=== PATIENT | female | born 1985 | race Caucasian/White ===

== ENCOUNTER 2019-06-01 02:43 | Emergency (ER) | payer MEDICAID ==
[2019-06-01] MEDS ORDERED: diphenhydrAMINE 50 MG/ML SDV IVPUSH ONE (03:00)
[2019-06-01] MEDS ORDERED: Ketorolac 30 MG/ML SDV IVPUSH ONE (03:00)
[2019-06-01] MEDS ORDERED: Ondansetron 4 MG/2 ML SDV IVPUSH ONE (03:00)
[2019-06-01] MEDS ORDERED: Sodium Chloride 0.9% 1,000 ML IV ONE (03:11)
--- NOTE | 2019-06-01 04:22 | CT ---
INDICATION: Increasing migraine TECHNIQUE: CT head without contrast. COMPARISON: None. FINDINGS: CSF spaces: Within normal limits for age. Brain parenchyma: The martell-white differentiation is normal. No sign of mass, hemorrhage, or midline shift. Skull base and calvarium: The visualized paranasal sinuses and mastoid air cells demonstrate no acute or significant findings. The visualized orbits are grossly unremarkable. No skull fractures. IMPRESSION: Unremarkable noncontrast head CT. Please note that all CT scans at this facility use dose modulation, iterative reconstruction, and/or weight-based dosing when appropriate to reduce radiation dose to as low as reasonably achievable. Dictated by Carrillo Meyer MD @ Jun 01 2019 4:18AM Signed by Dr. Carrillo Meyer @ Jun 01 2019 4:20AM
--- NOTE | 2019-06-01 04:32 | EDM.PDOC ---
ED HPI GENERAL MEDICAL PROBLEM - General Chief Complaint: Headache Stated Complaint: PERSISTENT MIGRAINE, DEHYDRATION Time Seen by Provider: 06/01/19 04:29 - History of Present Illness INITIAL COMMENTS - FREE TEXT/NARRATIVE: HISTORY AND PHYSICAL: History of present illness: Patient 33-year-old female with history of migraine headache sensory concern of migraine headache no trauma no other concern is his typical migraine per description with associated photophobia and nausea. Review of systems: As per history of present illness and below otherwise all systems reviewed and negative. Past medical history: As per history of present illness and as reviewed below otherwise noncontributory. Surgical history: As per history of present illness and as reviewed below otherwise noncontributory. Social history: No reported history of drug or alcohol abuse. Family history: As per history of present illness and as reviewed below otherwise noncontributory. Physical exam: HEENT: Atraumatic, normocephalic, pupils reactive, negative for conjunctival pallor or scleral icterus, mucous membranes moist, throat clear, neck supple, nontender, trachea midline. Lungs: Clear to auscultation, breath sounds equal bilaterally, chest nontender. Heart: S1S2, regular, negative for clicks, rubs, or JVD. Abdomen: Soft, nondistended, nontender. Negative for masses or hepatosplenomegaly. Negative for costovertebral tenderness. Pelvis: Stable nontender. Genitourinary: Deferred. Rectal: Deferred. Extremities: Atraumatic, negative for cords or calf pain. Neurovascular unremarkable. Neuro: Awake, alert, oriented. Cranial nerves II through XII unremarkable. Cerebellum unremarkable. Motor and sensory unremarkable throughout. Exam nonfocal. Diagnostics: CT brain Therapeutics: Saline 1 L bolus for now 30 mg IV Benadryl 25 mg IV Zofran 4 mg IV Impression: #1 migraine Definitive disposition and diagnosis as appropriate pending reevaluation and review of above. headache Pain Score (Numeric/FACES): 8 - Related Data Allergies Allergy/AdvReac Type Severity Reaction Status Date / Time cephalexin [From Keflex] Allergy Anxiety Verified 06/01/19 03:08 dexamethasone [From Decadron] Allergy Anxiety Verified 06/01/19 03:08 metoclopramide [From Reglan] Allergy Other Verified 06/01/19 03:08 Penicillins Allergy Anaphylactic Verified 06/01/19 03:08 Shock prochlorperazine Allergy Hives Verified 06/01/19 03:08 [From Compazine] Home Meds: Home Meds . [No Known Home Meds] 06/01/19 [History] Fish Oil/[place]tt-3 Fatty Acids [Fish Oil 1,000 MG] 1 each PO 06/01/19 [History] Methylfolate 100 mcg PO DAILY 06/01/19 [History] Ondansetron [Zofran ODT] 4 mg PO ASDIRECTED PRN 06/01/19 [History] SUMAtriptan Succinate [Imitrex] 0 mg SQ ASDIRECTED 06/01/19 [History] Spironolactone [Aldactone] 100 mg PO DAILY 06/01/19 [History] Topiramate 100 mg PO BEDTIME 06/01/19 [History] buPROPion HCl [Wellbutrin Xl] 150 mg PO DAILY 06/01/19 [History] clonazePAM [Klonopin] 1 mg PO BID 06/01/19 [History] Past Medical History HEENT History: Reports: None Cardiovascular History: Reports: None Respiratory History: Reports: None Gastrointestinal History: Reports: None 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: Reports: Endometriosis 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: multiple surgeries for endometriosis per pt Neurological History: Reports: None Psychiatric History: Reports: None Endocrine/Metabolic History: Reports: None Dermatologic History: Reports: None - Past Surgical History Female Surgical History: Reports: Hysterectomy Other Musculoskeletal Surgeries/Procedures:: right knee surgery Social & Family History - Family History Family Medical History: Noncontributory - Tobacco Use Smoking Status *Q: Current Every Day Smoker Years of Tobacco use: 15 Packs/Tins Daily: 0 Second Hand Smoke Exposure: No - Recreational Drug Use Recreational Drug Use: No ED ROS GENERAL - Review of Systems Review Of Systems: ROS reveals no pertinent complaints other than HPI. ED EXAM, GENERAL - Physical Exam Exam: See Below (See dictation) Course - Vital Signs Last Recorded V/S: Last Vital Signs Temp 36.6 C 06/01/19 02:52 Pulse 98 06/01/19 02:52 Resp 16 06/01/19 02:52 BP 107/57 L 06/01/19 02:52 Pulse Ox 96 06/01/19 02:52 - Orders/Labs/Meds Meds: Medications Discontinued Medications Generic Name Dose Route Start Last Admin Trade Name Freq PRN Reason Stop Dose Admin Diphenhydramine HCl 25 mg 06/01/19 03:00 06/01/19 03:08 Benadryl IVPUSH 06/01/19 03:01 25 mg ONETIME ONE Administration Sodium Chloride 1,000 mls @ 999 mls/hr 06/01/19 03:11 06/01/19 03:12 Normal Saline IV 06/01/19 04:11 999 mls/hr .Bolus ONE Administration Ketorolac Tromethamine 30 mg 06/01/19 03:00 06/01/19 03:08 Toradol IVPUSH 06/01/19 03:01 30 mg ONETIME ONE Administration Ondansetron HCl 4 mg 06/01/19 03:00 06/01/19 03:08 Zofran IVPUSH 06/01/19 03:01 4 mg ONETIME ONE Administration Departure - Departure Time of Disposition: 04:31 Disposition: Home, Self-Care 01 Condition: Good Clinical Impression: Migraine - Discharge Information Referrals: PCP,None [Primary Care Provider] - Additional Instructions: The following information is given to patients seen in the emergency department who are being discharged to home. This information is to outline your options for follow-up care. We provide all patients seen in our emergency department with a follow-up referral. The need for follow-up, as well as the timing and circumstances, are variable depending upon the specifics of your emergency department visit. If you don't have a primary care physician on staff, we will provide you with a referral. We always advise you to contact your personal physician following an emergency department visit to inform them of the circumstance of the visit and for follow-up with them and/or the need for any referrals to a consulting specialist. The emergency department will also refer you to a specialist when appropriate. This referral assures that you have the opportunity for followup care with a specialist. All of these measure are taken in an effort to provide you with optimal care, which includes your followup. Under all circumstances we always encourage you to contact your private physician who remains a resource for coordinating your care. When calling for followup care, please make the office aware that this follow-up is from your recent emergency room visit. If for any reason you are refused follow-up, please contact the [facility] emergency department at and asked to speak to the emergency department charge nurse. LAYLA [facility] [address] [place] [id number] Follow-up primary care above return as needed as discussed
== END 2019-06-01 05:06 | disposition home or self-care (01) ==
LOC: MW.ED 02:43
DX: G43.909 Migraine, unspecified, not intractable, without status migrainosus (principal); F17.210 Nicotine dependence, cigarettes, uncomplicated; Z88.0 Allergy status to penicillin; Z88.1 Allergy status to other antibiotic agents; Z88.8 Allergy status to other drugs, medicaments and biological substances; Z79.899 Other long term (current) drug therapy
CPT/HCPCS: 70450; 96361; 96374; 96375; 99283; J1200; J1885; J2405; J7040

== ENCOUNTER 2019-12-22 03:53 | Emergency (ER) | payer MEDICAID ==
[2019-12-22] MEDS ORDERED: Sodium Chloride 0.9% 1,000 ML IV ONE ×2 (04:04→06:17)
[2019-12-22] MEDS ORDERED: Ondansetron 4 MG/2 ML SDV IVPUSH ONE (04:04)
[2019-12-22] MEDS ORDERED: Ketorolac 30 MG/ML SDV IVPUSH ONE (04:16)
[2019-12-22] MEDS ORDERED: Ketorolac 30 MG/ML SDV ONE (04:16)
--- NOTE | 2019-12-22 04:27 | EDM.PDOC ---
ED HPI GENERAL MEDICAL PROBLEM - General Chief Complaint: Headache Stated Complaint: MIGRAINE Time Seen by Provider: 12/22/19 04:00 Source of Information: Reports: Patient History Limitations: Reports: No Limitations - History of Present Illness INITIAL COMMENTS - FREE TEXT/NARRATIVE: HISTORY OF PRESENT ILLNESS: Patient is a 34 year old female who presents with headache. States she has a history of migraine which was gradual in onset since this morning but progressively worsening. States she has been taking 100mg of Benadryl at a time approximately q 4 hours for a total of 500-525 mg of Benadryl in the last 19 hours. Her last dose was Benadryl 100 mg 1 hour ago. Pt began feeling dizzy and had nausea and multiple episodes of nonbloody nonbilious emesis. States her neighbor said she was stuttering but denies any changes in her speech presently. No trauma/falls. No fever. No neck stiffness. No rash. Has had a similar headache when she fell off a ladder in the past. Has tried her home migraine medication without relief. Denies SI, states she only took the Benadryl to try and abort the migraine. REVIEW OF SYSTEMS: Other than the symptoms associated with the present events, the following is reported with regard to recent health: General: (-) fever. HENT: (-) congestion. Respiratory: (-) cough. Cardiovascular: (-) chest pain. GI: (-) abdominal pain. : (-) urinary complaints. Musculoskeletal: (-) other aches or pains. Endocrine: (-) generalized weakness. Neurological: (-) localized weakness. Skin: (-) rash PAST MEDICAL HISTORY: reviewed as per nursing notes SOCIAL HISTORY: reviewed as per nursing notes, MEDICATIONS: Per nurse's note ALLERGIES: Per nurse's note, reviewed by me PHYSICAL EXAMINATION: GENERALIZED APPEARANCE: well developed, well nourished in moderate distress VITAL SIGNS: Per nurse's note, reviewed by me SKIN: Warm, dry; (-) cyanosis; (-) rash. HEAD: (-) scalp swelling, (-) tenderness. EYES: (-) conjunctival pallor, (-) scleral icterus. mydriasis bilaterally. EOMI ENMT: (-) stridor; mucous membranes moist. NECK: (-) tenderness, (-) stiffness, CHEST AND RESPIRATORY: (-) rales, (-) rhonchi, (-) wheezes; breath sounds equal bilaterally. HEART AND CARDIOVASCULAR: tachycardic, regular rhythm (-) murmur, (-) gallop. ABDOMEN AND GI: Soft; (-) tenderness, (-) guarding, (-) rebound, (-) palpable masses, EXTREMITIES: (-) deformity, (-) edema. NEURO AND PSYCH: Alert. Cranial nerves grossly intact; strength symmetric. gait steady. cerebellar nml . sensation intact. visual garcia intact. normal speech. no facial droop. 5/5+ strength UE and LE bilaterally. NIHSS = 0 DIAGNOSTICS: EKG: st at 106 bpm. nml axis. qtc 476 ms. qrs [address] head: as read by radiologist, reviewed by myself Labs reviewed EMERGENCY DEPARTMENT COURSE AND TREATMENT: Patient's condition improved during Emergency Department evaluation. Poison control contacted, see RN notes. Pt given Zofran for nausea and Toradol for pain control. Still with pain, as she had anticholinergic o/d, given Ativan. Hypokalemia noted and replaced. Initially stated she took Imitrex yesterday. On reevaluation, states she has been out and unable to get it refilled and was not able to take it yesterday. Given Imitrex 6 mg SQ. The patient presents to the emergency department with headache. Based on history, physical exam, and diagnostic evaluation, I doubt the symptoms are due to significant intracranial pathology such as traumatic injury, bleeding, or infection. The pt has a normal neurologic exam, and is without meningismus or fever. After therapy the symptoms improved and the patient ready for discharge. Discharge precautions were given and the patient understands to follow-up with the primary care physician for a repeat exam in 1- 2 days. The patient was instructed to return to the Emergency Department if headache worsens, or new symptoms develop. PLAN AND FOLLOW-UP: Patient received written and verbal instructions regarding this condition. Return to ED immediately with any new or worsening symptoms. Follow up to be arranged by patient with pcp in 1-2 days for further evaluation. Given discharge precautions. Patient expressed verbal understanding. headache Pain Score (Numeric/FACES): 10 - Related Data Allergies Allergy/AdvReac Type Severity Reaction Status Date / Time cephalexin [From Keflex] Allergy Anxiety Verified 12/22/19 04:14 dexamethasone [From Decadron] Allergy Anxiety Verified 12/22/19 04:14 metoclopramide [From Reglan] Allergy Other Verified 12/22/19 04:14 Penicillins Allergy Anaphylactic Verified 12/22/19 04:14 Shock prochlorperazine Allergy Hives Verified 12/22/19 04:14 [From Compazine] Home Meds: Home Meds Fish Oil/[place]-3 Fatty Acids [Fish Oil 1,000 MG] 1 each PO DAILY 06/01/19 [ History] Methylfolate 100 mcg PO DAILY 06/01/19 [History] Ondansetron [Zofran ODT] 4 mg PO ASDIRECTED PRN 06/01/19 [History] SUMAtriptan Succinate [Imitrex] 0 mg SQ ASDIRECTED 06/01/19 [History] Spironolactone [Aldactone] 100 mg PO DAILY 06/01/19 [History] Topiramate 100 mg PO BEDTIME 06/01/19 [History] clonazePAM [Klonopin] 1 mg PO BID 06/01/19 [History] Dicyclomine HCl [Bentyl] 10 mg PO QID PRN #10 capsule 09/03/19 [Rx] Ondansetron [Zofran ODT] 4 mg PO Q6H PRN #10 tab.dis 09/03/19 [Rx] Venlafaxine [Effexor] 125 mg PO DAILY 09/03/19 [History] SUMAtriptan [Imitrex] 6 mg SQ DAILY PRN #1 sdv 12/22/19 [Rx] Past Medical History HEENT History: Reports: None Cardiovascular History: Reports: None Respiratory History: Reports: None Gastrointestinal History: Reports: None 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: Reports: Endometriosis 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: multiple surgeries for endometriosis per pt Neurological History: Reports: None Psychiatric History: Reports: None Endocrine/Metabolic History: Reports: None Dermatologic History: Reports: None - Infectious Disease History Infectious Disease History: Reports: Chicken Pox - Past Surgical History Female Surgical History: Reports: Hysterectomy Other Musculoskeletal Surgeries/Procedures:: right knee surgery Social & Family History - Family History Family Medical History: Noncontributory - Caffeine Use Caffeine Use: Reports: Coffee, Soda ED ROS GENERAL - Review of Systems Review Of Systems: See Below (see dictation) ED EXAM, GENERAL - Physical Exam Exam: See Below (see dictation) Course - Vital Signs Last Recorded V/S: Last Vital Signs Temp 96 F L 12/22/19 04:00 Pulse 89 12/22/19 06:33 Resp 20 12/22/19 06:00 BP 102/74 12/22/19 06:33 Pulse Ox 99 12/22/19 06:00 - Orders/Labs/Meds Orders: Active Orders 24 hr Category Date Time Status EKG Documentation Completion [RC] STAT Care 12/22/19 04:04 Active Sodium Chloride 0.9% [Normal Saline] 1,000 ml Med 12/22/19 06:17 Active IV .Bolus Medication Orders Sodium Chloride (Normal Saline) 1,000 mls @ 1,000 mls/hr IV .Bolus ONE Stop: 12/22/19 07:16 Last Admin: 12/22/19 06:27 Dose: 1,000 mls/hr Labs: Laboratory Tests 12/22/19 12/22/19 12/22/19 Range/Units 04:03 04:03 04:03 WBC 11.54 H (4.0-11.0) K/uL RBC 5.32 (4.30-5.90) M/uL Hgb 15.7 (12.0-16.0) g/dL Hct 46.7 H (36.0-46.0) % MCV 87.8 (80.0-98.0) fL MCH 29.5 (27.0-32.0) pg MCHC 33.6 (31.0-37.0) g/dL RDW Std Deviation 43.2 (28.0-62.0) fl RDW Coeff of Giancarlo 14 (11.0-15.0) % Plt Count 346 (150-400) K/uL MPV 10.10 (7.40-12.00) fL Neut % (Auto) 46.7 L (48.0-80.0) % Lymph % (Auto) 45.2 H (16.0-40.0) % [place] % (Auto) 6.8 (0.0-15.0) % Eos % (Auto) 1.0 (0.0-7.0) % Baso % (Auto) 0.3 (0.0-1.5) % Neut # (Auto) 5.4 (1.4-5.7) K/uL Lymph # (Auto) 5.2 H (0.6-2.4) K/uL [place] # (Auto) 0.8 (0.0-0.8) K/uL Eos # (Auto) 0.1 (0.0-0.7) K/uL Baso # (Auto) 0.0 (0.0-0.1) K/uL Nucleated RBC % 0.0 /100WBC Nucleated RBCs # 0 K/uL Sodium 140 (136-145) mmol/L Potassium 2.8 L (3.5-5.1) mmol/L Chloride 102 (98-107) mmol/L Carbon Dioxide 26.0 (21.0-32.0) mmol/L BUN 5 L (7.0-18.0) mg/dL Creatinine 0.9 (0.6-1.0) mg/dL Est Cr Clr Drug Dosing TNP Estimated GFR (MDRD) > 60.0 ml/min Glucose 121 H (74-106) mg/dL Calcium 9.0 (8.5-10.1) mg/dL Creatine Kinase 80 (26-308) U/L Salicylates 4.8 (0-20) mg/dL Urine Opiates Screen (NEGATIVE) Ur Oxycodone Screen (NEGATIVE) Urine Methadone Screen (NEGATIVE) Acetaminophen <2.0 ug/mL Ur Barbiturates Screen (NEGATIVE) Ur Phencyclidine Scrn (NEGATIVE) Ur Amphetamine Screen (NEGATIVE) U Methamphetamines Scrn (NEGATIVE) U Benzodiazepines Scrn (NEGATIVE) U Cocaine Metab Screen (NEGATIVE) U Marijuana (THC) Screen (NEGATIVE) 12/22/19 Range/Units 06:35 WBC (4.0-11.0) K/uL RBC (4.30-5.90) M/uL Hgb (12.0-16.0) g/dL Hct (36.0-46.0) % MCV (80.0-98.0) fL MCH (27.0-32.0) pg MCHC (31.0-37.0) g/dL RDW Std Deviation (28.0-62.0) fl RDW Coeff of Giancarlo (11.0-15.0) % Plt Count (150-400) K/uL MPV (7.40-12.00) fL Neut % (Auto) (48.0-80.0) % Lymph % (Auto) (16.0-40.0) % [place] % (Auto) (0.0-15.0) % Eos % (Auto) (0.0-7.0) % Baso % (Auto) (0.0-1.5) % Neut # (Auto) (1.4-5.7) K/uL Lymph # (Auto) (0.6-2.4) K/uL [place] # (Auto) (0.0-0.8) K/uL Eos # (Auto) (0.0-0.7) K/uL Baso # (Auto) (0.0-0.1) K/uL Nucleated RBC % /100WBC Nucleated RBCs # K/uL Sodium (136-145) mmol/L Potassium (3.5-5.1) mmol/L Chloride (98-107) mmol/L Carbon Dioxide (21.0-32.0) mmol/L BUN (7.0-18.0) mg/dL Creatinine (0.6-1.0) mg/dL Est Cr Clr Drug Dosing Estimated GFR (MDRD) ml/min Glucose (74-106) mg/dL Calcium (8.5-10.1) mg/dL Creatine Kinase (26-308) U/L Salicylates (0-20) mg/dL Urine Opiates Screen NEGATIVE (NEGATIVE) Ur Oxycodone Screen NEGATIVE (NEGATIVE) Urine Methadone Screen NEGATIVE (NEGATIVE) Acetaminophen ug/mL Ur Barbiturates Screen NEGATIVE (NEGATIVE) Ur Phencyclidine Scrn NEGATIVE (NEGATIVE) Ur Amphetamine Screen NEGATIVE (NEGATIVE) U Methamphetamines Scrn NEGATIVE (NEGATIVE) U Benzodiazepines Scrn POSITIVE (NEGATIVE) U Cocaine Metab Screen NEGATIVE (NEGATIVE) U Marijuana (THC) Screen NEGATIVE (NEGATIVE) Meds: Medications Generic Name Dose Route Start Last Admin Trade Name Freq PRN Reason Stop Dose Admin Sodium Chloride 1,000 mls @ 1,000 mls/hr 12/22/19 06:17 12/22/19 06:27 Normal Saline IV 12/22/19 07:16 1,000 mls/hr .Bolus ONE Administration Discontinued Medications Generic Name Dose Route Start Last Admin Trade Name Freq PRN Reason Stop Dose Admin Sodium Chloride 1,000 mls @ 1,000 mls/hr 12/22/19 04:04 12/22/19 04:10 Normal Saline IV 12/22/19 05:03 1,000 mls/hr .Bolus ONE Administration Ketorolac Tromethamine 30 mg 12/22/19 04:16 12/22/19 04:19 Toradol IVPUSH 12/22/19 04:17 30 mg ONETIME ONE Administration Ketorolac Tromethamine Confirm 12/22/19 04:16 12/22/19 04:19 Toradol Administered 12/22/19 04:17 Not Given Dose 30 mg .ROUTE .STK-MED ONE Lorazepam 1 mg 12/22/19 04:56 12/22/19 04:59 Ativan IVPUSH 12/22/19 04:57 1 mg ONETIME ONE Administration Lorazepam 1 mg 12/22/19 06:16 12/22/19 06:27 Ativan IVPUSH 12/22/19 06:17 1 mg ONETIME ONE Administration Ondansetron HCl 4 mg 12/22/19 04:04 12/22/19 04:19 Zofran IVPUSH 12/22/19 04:05 4 mg ONETIME ONE Administration Potassium Chloride 40 meq 12/22/19 04:41 12/22/19 05:01 Klor-Con M20 PO 12/22/19 04:42 40 meq ONETIME ONE Administration Sumatriptan Succinate 6 mg 12/22/19 06:48 12/22/19 06:59 Imitrex SUBCUT 12/22/19 06:49 6 mg ONETIME ONE Administration Departure - Departure Time of Disposition: 07:14 Disposition: Home, Self-Care 01 Condition: Good Clinical Impression: Headache - Discharge Information *PRESCRIPTION DRUG MONITORING PROGRAM REVIEWED*: Not Applicable *COPY OF PRESCRIPTION DRUG MONITORING REPORT IN PATIENT DINA: Not Applicable Prescriptions: SUMAtriptan [Imitrex] 6 mg SQ DAILY PRN #1 sdv PRN Reason: migraine Instructions: Recurrent Migraine Headache, [id number] Referrals: Ananda Sharma [Primary Care Provider] - 1 Day Forms: ED Department Discharge Additional Instructions: The following information is given to patients seen in the emergency department who are being discharged to home. This information is to outline your options for follow-up care. We provide all patients seen in our emergency department with a follow-up referral. The need for follow-up, as well as the timing and circumstances, are variable depending upon the specifics of your emergency department visit. If you don't have a primary care physician on staff, we will provide you with a referral. We always advise you to contact your personal physician following an emergency department visit to inform them of the circumstance of the visit and for follow-up with them and/or the need for any referrals to a consulting specialist. The emergency department will also refer you to a specialist when appropriate. This referral assures that you have the opportunity for follow-up care with a specialist. All of these measure are taken in an effort to provide you with optimal care, which includes your follow-up. Under all circumstances we always encourage you to contact your private physician who remains a resource for coordinating your care. When calling for follow-up care, please make the office aware that this follow-up is from your recent emergency room visit. If for any reason you are refused follow-up, please contact the [facility] Emergency Department at and asked to speak to the emergency department charge nurse. Sepsis Event Note - Evaluation Sepsis Screening Result: No Definite Risk - Focused Exam Vital Signs: Vital Signs Temp Pulse Resp BP Pulse Ox 12/22/19 06:33 89 102/74 12/22/19 06:00 98 20 109/81 99 12/22/19 04:00 96 F L 130 H 18 131/102 H 96 Date Exam was Performed: 12/22/19 Time Exam was Performed: 07:12 - My Orders Last 24 Hours: My Active Orders 12/22/19 04:04 EKG Documentation Completion [RC] STAT 12/22/19 06:17 Sodium Chloride 0.9% [Normal Saline] 1,000 ml IV .Bolus - Assessment/Plan Last 24 Hours: My Active Orders 12/22/19 04:04 EKG Documentation Completion [RC] STAT 12/22/19 06:17 Sodium Chloride 0.9% [Normal Saline] 1,000 ml IV .Bolus
[2019-12-22 04:32] LABS: ACETAMINOPHEN <2.0 ug/mL
[2019-12-22 04:33] LABS: BLOOD UREA NITROGEN,BUN 5 mg/dL (7.0-18.0); CHLORIDE,CL 102 mmol/L (98-107); GLUCOSE RANDOM 121 mg/dL (74-106); POTASSIUM,K 2.8 mmol/L (3.5-5.1); SODIUM,NA 140 mmol/L (136-145)
[2019-12-22] MEDS ORDERED: Potassium Chloride 20 MEQ Tab.ER PO ONE (04:41)
[2019-12-22] MEDS ORDERED: LORazepam 2 MG/ML SDV IVPUSH ONE ×2 (04:56→06:16)
--- NOTE | 2019-12-22 05:07 | CT ---
INDICATION: Migraine headache TECHNIQUE: CT head without contrast. COMPARISON: June 01, 2020 FINDINGS: CSF spaces: Within normal limits for age. Brain parenchyma: The martell-white differentiation is normal. No sign of mass, hemorrhage, or midline shift. Skull base and calvarium: The visualized paranasal sinuses and mastoid air cells demonstrate no acute or significant findings. The visualized orbits are grossly unremarkable. No skull fractures. IMPRESSION: Unremarkable noncontrast head CT. Please note that all CT scans at this facility use dose modulation, iterative reconstruction, and/or weight-based dosing when appropriate to reduce radiation dose to as low as reasonably achievable. Dictated by Elizabeth Lopez MD @ Dec 22 2019 5:05AM Signed by Dr. Elizabeth Lopez @ Dec 22 2019 5:05AM
[2019-12-22] MEDS ORDERED: SUMAtriptan 6 MG/0.5 ML SDV SUBCUT ONE (06:48)
== END 2019-12-22 07:40 | disposition home or self-care (01) ==
LOC: MW.ED 03:53
DX: R51 Headache (principal); Z88.1 Allergy status to other antibiotic agents; Z88.0 Allergy status to penicillin; Z88.8 Allergy status to other drugs, medicaments and biological substances; Z79.899 Other long term (current) drug therapy
CPT/HCPCS: 36415; 70450; 80048; 80305; 80307; 82550; 85025; 93005; 96361; 96372; 96374; 96375; 96376; 99284; A9270; J1885; J2060; J2405; J3030; J7030; 99283

== ENCOUNTER 2020-03-30 05:24 | Emergency (ER) | payer MEDICAID ==
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
[2020-03-30] MEDS ORDERED: Ondansetron 4 MG Tab.DIS PO ONE (06:16)
[2020-03-30] MEDS ORDERED: Acetaminophen 500 MG Tab PO ONE (06:16)
--- NOTE | 2020-03-30 06:23 | CT ---
INDICATION: Trauma COMPARISON: None TECHNIQUE: CT examination of the head was performed as axial sections without intravenous contrast. Images were obtained from the vertex of the skull through the skull base. Please note that all CT scans at this facility use dose modulation, iterative reconstruction, and/or weight-based dosing when appropriate to reduce radiation dose to as low as reasonably achievable. FINDINGS: The brain shows no sign of mass lesion, mass effect, hemorrhage, or edema. The ventricles and sulci are normal in appearance for the patient`s age. The visualized portions of the orbits are normal in appearance. The osseous structures are normal in their appearance with no sign of abnormality in the skull base or calvarium. IMPRESSION: Normal unenhanced head CT. Please note that all CT scans at this facility use dose modulation, iterative reconstruction, and/or weight-based dosing when appropriate to reduce radiation dose to as low as reasonably achievable. Dictated by Hadley Denny MD @ Mar 30 2020 6:19AM Signed by Dr. Hadley Denny @ Mar 30 2020 6:21AM
== END 2020-03-30 06:40 | disposition home or self-care (01) ==
LOC: MW.ED 05:24
DX: S09.90XA Unspecified injury of head, initial encounter (principal); Z88.1 Allergy status to other antibiotic agents; G43.909 Migraine, unspecified, not intractable, without status migrainosus; F32.9 Major depressive disorder, single episode, unspecified; Z88.0 Allergy status to penicillin; Z88.8 Allergy status to other drugs, medicaments and biological substances; Z79.899 Other long term (current) drug therapy; Z90.710 Acquired absence of both cervix and uterus; Z98.890 Other specified postprocedural states; W50.0XXA Accidental hit or strike by another person, initial encounter
CPT/HCPCS: 70450; 99284; A9270; 99282

== ENCOUNTER 2020-05-21 20:46 | Emergency (ER) | payer MEDICAID, OTHER ==
[2020-05-21] MEDS ORDERED: Ketorolac 30 MG/ML SDV IM ONE (22:17)
[2020-05-21] MEDS ORDERED: Ketorolac 30 MG/ML SDV ONE (22:19)
--- NOTE | 2020-05-21 22:28 | EDM.PDOC ---
ED HPI GENERAL MEDICAL PROBLEM - General Chief Complaint: General Stated Complaint: POSSIBLE COVID TYPE SYMPTOMS Time Seen by Provider: 05/21/20 21:39 Source of Information: Reports: Patient - History of Present Illness INITIAL COMMENTS - FREE TEXT/NARRATIVE: History of present illness: 34-year-old female presenting with body aches, cough, chills and fevers, T-max, for the last 2 weeks. She is concerned she may have coronavirus. Symptoms started about 2 weeks ago, shortly after returning from a wedding she attended in [place]. No chest pain. Review of systems: As per history of present illness and below otherwise all systems reviewed and negative. Past medical history: As per history of present illness and as reviewed below otherwise noncontributory. Migraines Surgical history: As per history of present illness and as reviewed below otherwise noncontributory. Hysterectomy Social history: No reported history of drug or alcohol abuse. She is a smoker but she has not felt well enough to smoke for the last 2 weeks Family history: As per history of present illness and as reviewed below otherwise noncontributory. Physical exam: GEN: no acute distress, well appearing HEENT: Atraumatic, normocephalic, mucous membranes moist, Neck: supple. Lungs: No respiratory distress. Heart: RRR Neuro: Awake, alert, oriented. Neuro Exam nonfocal. Skin: warm, dry, no lesions Diagnostics: [] Therapeutics: [] MDM: Impression: [] Plan: [] Definitive disposition and diagnosis as appropriate pending reevaluation and review of above. Chest Pain Score (Numeric/FACES): 6 - Related Data Allergies Allergy/AdvReac Type Severity Reaction Status Date / Time cephalexin [From Keflex] Allergy Anxiety Verified 05/21/20 21:26 dexamethasone [From Decadron] Allergy Anxiety Verified 05/21/20 21:26 metoclopramide [From Reglan] Allergy Other Verified 05/21/20 21:26 Penicillins Allergy Anaphylactic Verified 05/21/20 21:26 Shock prochlorperazine Allergy Hives Verified 05/21/20 21:26 [From Compazine] Home Meds: Home Meds Fish Oil/[place]-3 Fatty Acids [Fish Oil 1,000 MG] 1 each PO DAILY 06/01/19 [History] Methylfolate 100 mcg PO DAILY 06/01/19 [History] Ondansetron [Zofran ODT] 4 mg PO ASDIRECTED PRN 06/01/19 [History] SUMAtriptan succinate [Imitrex] 0 mg SQ ASDIRECTED 06/01/19 [History] Spironolactone [Aldactone] 100 mg PO DAILY 06/01/19 [History] Topiramate 100 mg PO BEDTIME 06/01/19 [History] clonazePAM [Klonopin] 1 mg PO BID 06/01/19 [History] Dicyclomine HCl [Bentyl] 10 mg PO QID PRN #10 capsule 09/03/19 [Rx] Ondansetron [Zofran ODT] 4 mg PO Q6H PRN #10 tab.dis 09/03/19 [Rx] Venlafaxine [Effexor] 125 mg PO DAILY 09/03/19 [History] SUMAtriptan [Imitrex] 6 mg SQ DAILY PRN #1 sdv 12/22/19 [Rx] Naproxen [EC-Naproxen] 500 mg PO Q12HR #20 tablet. 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 Hysterectomy. Musculoskeletal History: Reports: None Neurological History: Reports: Migraines Psychiatric History: Reports: Anxiety, Depression Endocrine/Metabolic History: Reports: None Insulin Pump Model and C Engineer: None Hematologic History: Reports: None Immunologic History: Reports: None Oncologic (Cancer) History: Reports: None Dermatologic History: Reports: None - Infectious Disease History Infectious Disease History: Reports: Chicken Pox - Past Surgical History Head Surgeries/Procedures: Reports: None HEENT Surgical History: Reports: Oral Surgery, Tonsillectomy, Other (See Below) Other HEENT Surgeries/Procedures: [place] teeth removal Female Surgical History: Reports: Hysterectomy Other Musculoskeletal Surgeries/Procedures:: right knee surgery Social & Family History - Family History Family Medical History: Noncontributory - Tobacco Use Smoking Status *Q: Current Every Day Smoker Years of Tobacco use: 0 Packs/Tins Daily: 0 - Caffeine Use Caffeine Use: Reports: Energy Drinks, Soda - Recreational Drug Use Recreational Drug Use: No ED ROS GENERAL - Review of Systems Review Of Systems: See Below (HPI) ED EXAM, GENERAL - Physical Exam Exam: See Below (See HPI) Course - Vital Signs Text/Narrative:: Patient with cough, fever, chills, body aches, concern for possible coronavirus. Chest x-ray negative. COVID swab negative, however I suspect she may have a swab negative coronavirus, given her symptoms. Plan was to discharge with azithromycin and prednisone prescriptions as well as albuterol inhaler, however the patient eloped prior to receiving any discharge instructions or prescriptions. She did receive a dose of azithromycin and prednisone here prior to departing. She did not give any notification to me or the nurse and when registration attempted to stop her as she was departing, she would not stop for them. Last Recorded V/S: Last Vital Signs Temp 96.7 F L 05/21/20 23:24 Pulse 88 05/21/20 23:24 Resp 18 05/21/20 23:24 BP 92/61 05/21/20 23:24 Pulse Ox 99 05/21/20 23:24 - Orders/Labs/Meds Labs: Laboratory Tests 05/21/20 Range/Units 22:20 COVID-19 (KELIN) NEGATIVE (NEGATIVE) Meds: Medications Discontinued Medications Generic Name Dose Route Start Last Admin Trade Name Deangelo PRNorma Reason Stop Dose Admin Azithromycin 500 mg 05/21/20 22:46 05/21/20 23:22 Zithromax PO 05/21/20 22:47 500 mg ONETIME ONE Administration Ketorolac Tromethamine 30 mg 05/21/20 22:17 05/21/20 22:30 Toradol IM 05/21/20 22:18 30 mg ONETIME ONE Administration Ketorolac Tromethamine Confirm 05/21/20 22:19 05/21/20 22:27 Toradol Administered 05/21/20 22:20 Not Given Dose 30 mg .ROUTE .STK-MED ONE Prednisone 60 mg 05/21/20 22:45 05/21/20 23:22 Prednisone PO 05/21/20 22:46 60 mg ONETIME ONE Administration - Re-Assessments/Exams Free Text/Narrative Re-Assessment/Exam: 05/21/20 23:42 Apparently the patient was seen leaving the emergency department. The registr ation desk attempted to stop her to ask her to wait for reassessment and discharge paperwork and prescriptions, however the patient told them she was leaving. She did not wait to discuss early departure with me or with her nurse. Departure - Departure Time of Disposition: 23:41 Disposition: Eloped 07 Clinical Impression: Bronchitis - Discharge Information Referrals: Amber Shields PA [Primary Care Provider] - Forms: ED Department Discharge Sepsis Event Note (ED) - Evaluation Sepsis Screening Result: No Definite Risk - Focused Exam Vital Signs: Vital Signs Temp Pulse Resp BP Pulse Ox 05/21/20 23:24 96.7 F L 88 18 92/61 99 05/21/20 21:22 97.0 F 97 17 105/69 95
--- NOTE | 2020-05-21 22:43 | CR ---
INDICATION: Cough, covid symptoms TECHNIQUE: Chest radiograph 1 view COMPARISON: None FINDINGS: Mediastinum: The mediastinum is normal in appearance. The heart silhouette is normal in size and morphology. Lung: Both lungs are unremarkable in appearance. No sign of pleural effusion seen. No pneumothorax is identified. Bone and Soft tissue: Unremarkable for age. IMPRESSION: 1. No acute cardiopulmonary disease is seen. Dictated by: Bryant Costa MD @ 05/21/2020 22:41:04 (Electronically Signed)
[2020-05-21] MEDS ORDERED: predniSONE 20 MG Tab PO ONE (22:45)
[2020-05-21] MEDS ORDERED: Azithromycin 250 MG Tab PO ONE (22:46)
== END 2020-05-21 23:40 | disposition left against medical advice (07) ==
LOC: MW.ED 20:46
DX: J40 Bronchitis, not specified as acute or chronic (principal); G43.909 Migraine, unspecified, not intractable, without status migrainosus; F41.9 Anxiety disorder, unspecified; F32.9 Major depressive disorder, single episode, unspecified; F17.210 Nicotine dependence, cigarettes, uncomplicated; Z20.828 Contact with and (suspected) exposure to other viral communicable diseases; Z88.1 Allergy status to other antibiotic agents; Z88.0 Allergy status to penicillin; Z79.899 Other long term (current) drug therapy; Z88.8 Allergy status to other drugs, medicaments and biological substances; Z90.710 Acquired absence of both cervix and uterus
CPT/HCPCS: 71045; 87635; 96372; 99283; A9270; J1885; 99282; U0002

== ENCOUNTER 2020-10-20 05:37 | Emergency (ER) | payer MEDICAID ==
[2020-10-20] MEDS ORDERED: Lidocaine 1% with EPINEPHrine 1:100,000 20 ML MDV INJECT ONE (05:58)
[2020-10-20] MEDS ORDERED: Diphtheria,Pertussis(Acell),Tetanus Vaccine 0.5 ML Syringe IM ONE (06:00)
--- NOTE | 2020-10-20 06:05 | EDM.PDOC ---
ED HPI GENERAL MEDICAL PROBLEM - General Chief Complaint: Behavioral/Psych Stated Complaint: LACERATIONS ON WRISTS Time Seen by Provider: 10/20/20 05:38 - History of Present Illness INITIAL COMMENTS - FREE TEXT/NARRATIVE: Patient is a 35-year-old female with a history of anxiety and depression. She states that she is on medications and is seeing a psychiatrist she has an appointment with psychiatry on Thursday. She became very depressed tonight. And self harmed on both her wrists. She states that the goal was to cause physical pain to distract from emotional pain. She denies suicidal intent she denies current SI she denies current HI. She denies trouble with auditory or visual hallucinations. She has needed to be hospitalized for psychiatric reasons but that was several years ago. She states that she lives with her significant other and her roommate. She states that she feels safe at home. She states that she does not currently have impulses to self-harm. Bilateral Wrist Pain Score (Numeric/FACES): 7 - Related Data Allergies Allergy/AdvReac Type Severity Reaction Status Date / Time cephalexin [From Keflex] Allergy Anxiety Verified 09/18/20 22:54 dexamethasone [From Decadron] Allergy Anxiety Verified 09/18/20 22:54 metoclopramide [From Reglan] Allergy Other Verified 09/18/20 22:54 Penicillins Allergy Anaphylactic Verified 09/18/20 22:54 Shock prochlorperazine Allergy Hives Verified 09/18/20 22:54 [From Compazine] Home Meds: Home Meds SUMAtriptan succinate [Imitrex] 6 mg SQ .ONSET OF HEADACHE PRN 06/01/19 [History] Spironolactone [Aldactone] 50 mg PO DAILY 06/01/19 [History] Topiramate 100 mg PO BEDTIME 06/01/19 [History] clonazePAM [Klonopin] 1 mg PO BID PRN 06/01/19 [History] Butalb/Acetaminophen/Caffeine [Ziirsz-Tlvpyxft-Opkh 50-300-40] 1 cap PO Q4H PRN 09/15/20 [History] Venlafaxine HCl [Venlafaxine ER] 150 mg PO DAILY 09/15/20 [History] Past Medical History HEENT History: Reports: None Cardiovascular History: Reports: None Respiratory History: Reports: None Gastrointestinal History: Reports: None Genitourinary History: Reports: None SALESPERSON FURS History: Reports: Endometriosis Other SALESPERSON FURS History: multiple surgeries for endometriosis per pt. Hysterectomy. Musculoskeletal History: Reports: None Neurological History: Reports: Migraines Psychiatric History: Reports: Anxiety, Depression Endocrine/Metabolic History: Reports: None Insulin Pump Model and Professor Of Oceanography: None Hematologic History: Reports: None Immunologic History: Reports: None Oncologic (Cancer) History: Reports: None Dermatologic History: Reports: None - Infectious Disease History Infectious Disease History: Reports: Chicken Pox - Past Surgical History Head Surgeries/Procedures: Reports: None HEENT Surgical History: Reports: Oral Surgery, Tonsillectomy, Other (See Below) Other HEENT Surgeries/Procedures: Fertile teeth removal Female Surgical History: Reports: Hysterectomy Other Musculoskeletal Surgeries/Procedures:: Right Knee Surgery Social & Family History - Family History Family Medical History: No Pertinent Family History - Caffeine Use Caffeine Use: Reports: Soda ED ROS GENERAL - Review of Systems Review Of Systems: See Below Free Text/Narrative/Comment: General: No fever. Skin: Per HPI Musculoskeletal: No myalgias/arthralgias. Neurologic: No headache. ED EXAM, GENERAL - Physical Exam Exam: See Below Free Text/Narrative:: General Appearance: No acute distress, appears comfortable Skin: The patient has multiple parallel linear abrasions along the bilateral forearms consistent with self-harm she has bilateral 1 cm slightly deeper lacerations that barely violate the dermis there is no deep structure injury strength and sensation is intact in the wrist and hand the lacerations are in the midline over the carpal tunnel. HEENT: Normocephalic/atraumatic, sclera anicteric, mucous membranes moist Neck: Normal range of motion Neurologic: Awake, alert, no obvious deficits, moving all extremities Psychiatric: Depressed mood with appropriate affect good eye contact no HI no SI no signs of internal stimuli ED GENERAL MEDICAL PROCEDURES - Additional/Other Procedure(s) Other (Free Text) Procedure(s): Laceration Repair Procedure Location: Bilateral wrist Length: Right wrist 7 mm, left wrist 1 cm Suture size and type: Repaired with Steri-Strips and Dermabond Complexity: Simple Time out: Yes, confirmed patient, place, procedure correct Consent: Verbal Suture technique: Simple interrupted Procedure: The wound was irrigated copiously with normal saline or sterile water. Close inspection revealed no evidence for retained foreign bodies and no violation of any deeper structures. Anesthesia was achieved using lidocaine. Dermabond and Steri-Strips applied leading to good wound approximation and hemostasis Complications: None Performed by: Brandon Kirk MD Course - Vital Signs Last Recorded V/S: Last Vital Signs Temp 97.0 F 10/20/20 05:51 Pulse 96 10/20/20 05:51 Resp 18 10/20/20 05:51 BP 107/68 10/20/20 05:51 Pulse Ox 95 10/20/20 05:51 - Orders/Labs/Meds Orders: Active Orders 24 hr Category Date Time Status Vaccines to be Administered [RC] PER UNIT ROUTINE Care 10/20/20 06:01 Active Meds: Medications Discontinued Medications Generic Name Dose Route Start Last Admin Trade Name Deangelo PRN Reason Stop Dose Admin Diphtheria/Tetanus/Acell Pertussis 0.5 ml 10/20/20 06:00 10/20/20 06:07 Boostrix IM 10/20/20 06:01 0.5 ml .ONCE ONE Administration Lidocaine/Epinephrine 20 ml 10/20/20 05:58 10/20/20 06:07 Xylocaine 1% With Epinephrine 1:100,000 INJECT 10/20/20 05:59 20 ml ONETIME ONE Administration Octyl Cyanoacrylate Confirm 10/20/20 06:26 Dermabond Mini Administered 10/20/20 06:27 Dose 2 applic .ROUTE .STK-MED ONE Departure - Departure Time of Disposition: 06:39 Disposition: Home, Self-Care 01 Condition: Good Clinical Impression: Wrist laceration - Discharge Information *PRESCRIPTION DRUG MONITORING PROGRAM REVIEWED*: Not Applicable *COPY OF PRESCRIPTION DRUG MONITORING REPORT IN PATIENT DINA: Not Applicable Instructions: Laceration Care, Adult, [id number], Self-Harming Behavior Information Referrals: Amber Shields PA [Primary Care Provider] - Forms: ED Department Discharge Additional Instructions: Please be sure to keep your psychiatry appointment for this Thursday. If you have any thoughts of self-harm I encourage you to call someone as we discussed you are always welcome and encouraged to call 911, call this ER or call the number associated with your psychiatrist. The following information is given to patients seen in the emergency department who are being discharged to home. This information is to outline your options for follow-up care. We provide all patients seen in our emergency department with a follow-up referral. The need for follow-up, as well as the timing and circumstances, are variable depending upon the specifics of your emergency department visit. If you don't have a primary care physician on staff, we will provide you with a referral. We always advise you to contact your personal physician following an emergency department visit to inform them of the circumstance of the visit and for follow-up with them and/or the need for any referrals to a consulting specialist. The emergency department will also refer you to a specialist when appropriate. This referral assures that you have the opportunity for follow-up care with a specialist. All of these measure are taken in an effort to provide you with optimal care, which includes your follow-up. Under all circumstances we always encourage you to contact your private physician who remains a resource for coordinating your care. When calling for follow-up care, please make the office aware that this follow-up is from your recent emergency room visit. If for any reason you are refused follow-up, please contact the [facility] Emergency Department at and asked to speak to the emergency department charge nurse. Sepsis Event Note (ED) - Focused Exam Vital Signs: Vital Signs Temp Pulse Resp BP Pulse Ox 10/20/20 05:51 97.0 F 96 18 107/68 95 - My Orders Last 24 Hours: My Active Orders 10/20/20 06:01 Vaccines to be Administered [RC] PER UNIT ROUTINE - Assessment/Plan Last 24 Hours: My Active Orders 10/20/20 06:01 Vaccines to be Administered [RC] PER UNIT ROUTINE Assessment:: 35-year-old female presenting with self-harm in an effort to relieve emotional distress. Patient denies suicidal intent she denies current SI or HI she states that she feels safe at home she states that she feels safe with herself at home. Her thoughts are linear and future oriented. She states that she has an appointment with her psychiatrist scheduled for Thursday to have her medications adjusted. Based on the preponderance of available evidence I do not believe that the patient requires emergent inpatient hospitalization. Her self injury was not in an effort to harm herself but in an effort to relieve emotional distress. She states that she has resources that she can reach out to including her psychiatrist and her significant other. 0640: Laceration repaired as documented without immediate complication. Patient voiced concerns about home to nursing. She and I talked again. She continues to deny suicidal or homicidal ideation she continues to deny that this was an effort to end her life. Given this I do not believe she meets criteria for inpatient psychiatric admission. Patient was encouraged and offered voluntary admission but she is declining that at this time. She was offered crisis center resources and she declines that. She states that if she again has self-harm impulses she promised that she will call somebody we talked about her calling her friends or calling EMS or calling the number associated with her psychiatrist. She expresses understanding and agreement with this plan.
[2020-10-20] MEDS ORDERED: Octyl 2-Cyanoacrylate 1 APPLIC TUBE ONE (06:26)
[2020-10-20] MEDS ORDERED: Octyl 2-Cyanoacrylate 1 APPLIC TUBE TOP ONE (06:40)
[2020-10-20] MEDS ORDERED: traMADol 50 MG Tab PO ONE (06:43)
[2020-10-20] MEDS ORDERED: Acetaminophen 325 MG Tab PO ONE (06:43)
== END 2020-10-20 07:00 | disposition home or self-care (01) ==
LOC: MW.ED 05:37
DX: S61.512A Laceration without foreign body of left wrist, initial encounter (principal); S61.511A Laceration without foreign body of right wrist, initial encounter; S50.812A Abrasion of left forearm, initial encounter; S50.811A Abrasion of right forearm, initial encounter; Z88.1 Allergy status to other antibiotic agents; Z88.8 Allergy status to other drugs, medicaments and biological substances; Z88.0 Allergy status to penicillin; Z23 Encounter for immunization; Z79.899 Other long term (current) drug therapy; X58.XXXA Exposure to other specified factors, initial encounter
CPT/HCPCS: 12001; 90471; 90715; 99283; A9270